=== PATIENT | male | born 1980 | race Caucasian/White ===

== ENCOUNTER 2018-11-11 13:05 | Emergency (ER) | payer MEDICAID ==
[2018-11-11] MEDS ORDERED: LORazepam 2 MG/ML SDV IVPUSH ONE (13:12)
[2018-11-11] MEDS ORDERED: Lactated Ringers 1,000 ML IV ONE (13:17)
--- NOTE | 2018-11-11 14:02 | EDM.PDOC ---
ED HPI GENERAL MEDICAL PROBLEM - General Chief Complaint: Head Injury Stated Complaint: SEIZURES Time Seen by Provider: 11/11/18 13:10 Source of Information: Reports: Patient, EMS History Limitations: Reports: Other (mental delays) - History of Present Illness INITIAL COMMENTS - FREE TEXT/NARRATIVE: Patient brought in via EMS from the [facility] after reports of several seizures which resulted in the patient falling and striking the back of his head. He did have some bleeding from the injury. 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 Seizures all 1 minute in length or shorter. He had 3 different episodes at [facility] and 1 episode in the ambulance. Total of 4 seizures in 1 hour. Denies headache, neck ache, chest pain, SOB, abdominal pain. He has no complaints when asked. Alert, breathing, and in no distress. Onset: Today, Sudden Duration: Intermittent Associated Symptoms: Reports: Seizure - Related Data Allergies Allergy/AdvReac Type Severity Reaction Status Date / Time minocycline Allergy Cannot Verified 11/18/15 13:43 Remember Home Meds: Home Meds Calcium Citrate 250 mg PO BID 11/18/15 [History] Cholecalciferol (Vitamin D3) [Vitamin D3] 2,000 unit PO DAILY 11/18/15 [History] Desonide 1 applic TOP BID PRN 11/18/15 [History] Diazepam [Valium Intensol 5 MG/ML] 20 mg BUCCAL ASDIRECTED PRN 11/18/15 [History ] Methsuximide [Celontin] 600 mg PO BID 11/18/15 [History] Multivitamin/Iron/Folic Acid [Sentry Tablet] 1 each PO DAILY 11/18/15 [History] lamoTRIgine [Lamotrigine] 300 mg PO TID 11/18/15 [History] levETIRAcetam [Levetiracetam] 1,000 mg PO DAILY 11/18/15 [History] levETIRAcetam [Levetiracetam] 2,000 mg PO BID 11/18/15 [History] Past Medical History Neurological History: Reports: Seizure Social & Family History - Family History Family Medical History: Noncontributory ED ROS GENERAL - Review of Systems Review Of Systems: See Below Constitutional: Reports: No Symptoms HEENT: Reports: No Symptoms Respiratory: Reports: No Symptoms Cardiovascular: Reports: No Symptoms Endocrine: Reports: No Symptoms GI/Abdominal: Reports: No Symptoms : Reports: No Symptoms Musculoskeletal: Reports: No Symptoms Skin: Reports: No Symptoms Neurological: Reports: No Symptoms Psychiatric: Reports: No Symptoms Hematologic/Lymphatic: Reports: No Symptoms Immunologic: Reports: No Symptoms ED EXAM, GI/ABD - Physical Exam Exam: See Below Exam Limited By: Other (mental delays) General Appearance: Alert, No Apparent Distress Eyes: Bilateral: Normal Appearance, EOMI Ears: Normal TMs Nose: Normal Inspection, Normal Mucosa, No Blood Throat/Mouth: Normal Inspection, Normal Lips, Normal Teeth, Normal Gums, Normal Oropharynx, Normal Voice, No Airway Compromise Head: Atraumatic, Normocephalic Neck: Normal Inspection, Supple, Non-Tender, Full Range of Motion Respiratory/Chest: No Respiratory Distress, Lungs Clear, Normal Breath Sounds, No Accessory Muscle Use, Chest Non-Tender Cardiovascular: Normal Peripheral Pulses, Regular Rate, Rhythm, No Edema, No Gallop, No JVD, No Murmur, No Rub GI/Abdominal Exam: Normal Bowel Sounds, Soft, Non-Tender, No Organomegaly, No Distention, No Abnormal Bruit, No Mass, Pelvis Stable Extremities: Normal Inspection, Normal Range of Motion, Non-Tender, Normal Capillary Refill, No Pedal Edema Neurological: Alert, Oriented, CN II-XII Intact, Normal Cognition, Normal Gait, Normal Reflexes, No Motor/Sensory Deficits Psychiatric: Normal Affect, Normal Mood Skin Exam: Warm, Dry, Normal Color, No Rash, Wound/Incision (posterior occiput abrasion, no lac.) Lymphatic: No Adenopathy Course - Orders/Labs/Meds Orders: Active Orders 24 hr Category Date Time Status Cervical Spine wo Cont [CT] Stat Exams 11/11/18 13:11 Ordered Head wo Cont [CT] Stat Exams 11/11/18 13:11 Ordered BASIC METABOLIC PANEL,BMP [CHEM] Stat Lab 11/11/18 13:11 Ordered MAGNESIUM [CHEM] Stat Lab 11/11/18 13:11 Ordered LORazepam [Ativan] Med 11/11/18 13:12 Once 0.5 mg IVPUSH STAT ONE Medication Orders Lorazepam (Ativan) 0.5 mg IVPUSH STAT ONE Stop: 11/11/18 13:13 Meds: Medications Generic Name Dose Route Start Last Admin Trade Name Freq PRN Reason Stop Dose Admin Lorazepam 0.5 mg 11/11/18 13:12 Ativan IVPUSH 11/11/18 13:13 STAT ONE - Radiology Interpretation Free Text/Narrative:: CT of head and neck negative for acute process. Head shows some abrasion/ hematoma. No intracranial bleeding. Departure - Departure Time of Disposition: 15:05 Disposition: Home, Self-Care 01 Condition: Fair Clinical Impression: Seizure - Discharge Information *PRESCRIPTION DRUG MONITORING PROGRAM REVIEWED*: Not Applicable *COPY OF PRESCRIPTION DRUG MONITORING REPORT IN PATIENT IAN: Not Applicable Instructions: Seizure, Adult, [id number] Forms: ED Department Discharge Additional Instructions: Plan 1. Stay well hydrated 2. Continue to take your seizure medications as prescribed 3. Follow up with your regular neurologist as needed for any medication changes 4. Please call if you have any further questions or concerns - Problem List & Annotations (1) Seizure SNOMED Code(s): 12778703 Code(s): R56.9 - UNSPECIFIED CONVULSIONS Status: Acute Priority: Medium Current Visit: Yes - Problem List Review Problem List Initiated/Reviewed/Updated: Yes - My Orders Last 24 Hours: My Active Orders 11/11/18 13:11 Cervical Spine wo Cont [CT] Stat Head wo Cont [CT] Stat BASIC METABOLIC PANEL,BMP [CHEM] Stat MAGNESIUM [CHEM] Stat 11/11/18 13:12 LORazepam [Ativan] 0.5 mg IVPUSH STAT ONE - Assessment/Plan Last 24 Hours: My Active Orders 11/11/18 13:11 Cervical Spine wo Cont [CT] Stat Head wo Cont [CT] Stat BASIC METABOLIC PANEL,BMP [CHEM] Stat MAGNESIUM [CHEM] Stat 11/11/18 13:12 LORazepam [Ativan] 0.5 mg IVPUSH STAT ONE Assessment:: seizures Plan: Plan 1. Stay well hydrated 2. Continue to take your seizure medications as prescribed 3. Follow up with your regular neurologist as needed for any medication changes 4. Please call if you have any further questions or concerns
[2018-11-11 14:08] LABS: ANION GAP 12.7 mmol/L (10-20); CHLORIDE,CL 104 mmol/L (98-107); SODIUM,NA 141 mmol/L (136-145)
--- NOTE | 2018-11-11 14:32 | CT ---
[id number] CT/CT Head WO IV EXAM: CT Head WO IV CLINICAL DATA: FALL, HEAD LACERATION. COMPARISON STUDY: None FINDINGS: Small scalp contusions along the cranial vertex extending over the left parietal-occipital region. No underlying calvarial fracture. No acute intracranial hemorrhage. No evidence of acute large vessel ischemia. No hydrocephalus. There is however evidence of cerebellar atrophy, specifically the vermis in relation to the cerebral hemispheres. Finding is nonspecific. IMPRESSION: Left parieto-occipital and cranial vertex scalp contusions without underlying fracture or acute intracranial hemorrhage. Other findings are described above. Delvis Sims MD 11/11/18 [id number] Thank you for allowing us to participate in the care of your patient.
--- NOTE | 2018-11-11 14:33 | CT ---
[id number] CT/CT Cervical Spine WO IV EXAM: CT Cervical Spine WO IV INDICATION: FALL,HEAD LACERATION. COMPARISON: None. DISCUSSION: No fracture or compression deformity. Vertebral bodies remain in normal alignment. Scattered changes of mild to moderate spondylosis throughout the cervical spine. No prevertebral soft tissue edema. Lung apices are clear. IMPRESSION: No acute findings in the cervical spine. Delvis Sims MD 11/11/18 0012 Thank you for allowing us to participate in the care of your patient.
[2018-11-11] MEDS ORDERED: diazePAM 5 MG/ML MDV IVPUSH ONE (14:39)
== END 2018-11-11 15:05 | disposition home or self-care (01) ==
LOC: VM.ED 13:05
DX: R56.9 Unspecified convulsions (principal); Z88.8 Allergy status to other drugs, medicaments and biological substances; Z79.899 Other long term (current) drug therapy
CPT/HCPCS: 36415; 70450; 72125; 80048; 83735; 96361; 96374; 99285; J2060; J7120

== ENCOUNTER 2018-11-11 16:01 | Emergency (ER) | payer MEDICAID ==
[2018-11-11] MEDS: Lidocaine 2% with EPINEPHrine 1:100,000 20 ML MDV INJECT ONE (16:29)
--- NOTE | 2018-11-11 16:55 | EDM.PDOC ---
ED HPI GENERAL MEDICAL PROBLEM - General Chief Complaint: Head Injury Stated Complaint: FELL Time Seen by Provider: 11/11/18 16:22 Source of Information: Reports: Patient, Family History Limitations: Reports: No Limitations - History of Present Illness INITIAL COMMENTS - FREE TEXT/NARRATIVE: Patient returns to the ER after discharge after seizing and falling at the [facility] and lacerating his head. No other complaints. Mother has brought him in for re evaluation. Onset: Today, Sudden Location: Reports: Head - Related Data Allergies Allergy/AdvReac Type Severity Reaction Status Date / Time minocycline Allergy Cannot Verified 11/18/15 13:43 Remember Home Meds: Home Meds Calcium Citrate 250 mg PO BID 11/18/15 [History] Cholecalciferol (Vitamin D3) [Vitamin D3] 2,000 unit PO DAILY 11/18/15 [History] Desonide 1 applic TOP BID PRN 11/18/15 [History] Diazepam [Valium Intensol 5 MG/ML] 20 mg BUCCAL ASDIRECTED PRN 11/18/15 [History ] Methsuximide [Celontin] 600 mg PO BID 11/18/15 [History] Multivitamin/Iron/Folic Acid [Sentry Tablet] 1 each PO DAILY 11/18/15 [History] lamoTRIgine [Lamotrigine] 300 mg PO TID 11/18/15 [History] levETIRAcetam [Levetiracetam] 1,000 mg PO DAILY 11/18/15 [History] levETIRAcetam [Levetiracetam] 2,000 mg PO BID 11/18/15 [History] Past Medical History Neurological History: Reports: Seizure Social & Family History - Family History Family Medical History: Noncontributory ED ROS GENERAL - Review of Systems Review Of Systems: See Below Constitutional: Reports: No Symptoms HEENT: Reports: No Symptoms Respiratory: Reports: No Symptoms Cardiovascular: Reports: No Symptoms Endocrine: Reports: No Symptoms GI/Abdominal: Reports: No Symptoms : Reports: No Symptoms Musculoskeletal: Reports: No Symptoms Skin: Reports: Wound Neurological: Reports: No Symptoms Psychiatric: Reports: No Symptoms Hematologic/Lymphatic: Reports: No Symptoms Immunologic: Reports: No Symptoms ED EXAM, HEAD INJURY - Physical Exam Exam: See Below Exam Limited By: No Limitations General Appearance: Alert, WD/WN, No Apparent Distress Head: Normocephalic, Scalp Lacerations Eyes: Bilateral Eye: EOMI, Normal Inspection Neck: Non-Tender, Full Range of Motion, Normal Alignment, Normal Inspection 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 As Tested, No Motor/Sensory Deficits, Alert, Normal Mood/Affect, Oriented x 3 Skin: Other (wound to posterior head/occiput) ED LACERATION/WOUND & ELENA PROC - Laceration/Wound Repair Right Posterior Head Lac/wound length in cm: 3.5 Appearance: Stellate Anesthetic Type: Local Local Anesthesia - Lidocaine (Xylocaine): 2% with EPI Skin Prep: Chlorhexidine (Hibiciens) Exploration/Debridement/Repair: Wound Explored, In a Bloodless Field, Explored to Base, No Foreign Material Found, Multiple Flaps Aligned Closed with: Basilia # of Sutures: 8 Sterile Dressing Applied: Nurse Tetanus Status Addressed: No Complications: No Course - Orders/Labs/Meds Meds: Medications Discontinued Medications Generic Name Dose Route Start Last Admin Trade Name Freq PRN Reason Stop Dose Admin Lidocaine/Epinephrine 20 ml 11/11/18 16:23 11/11/18 16:29 Xylocaine 2% With Epinephrine 1:100,000 INJECT 11/11/18 16:24 20 ml ONETIME ONE Administration - Re-Assessments/Exams Free Text/Narrative Re-Assessment/Exam: 11/11/18 17:17 Mother given signs to look for if a needed repeat CT is warranted. CT of head and neck just performed at his first visit here. Will return to ED if any concerns of changing neuro status. Departure - Departure Time of Disposition: 16:55 Disposition: Home, Self-Care 01 Condition: Fair Clinical Impression: Laceration of head - Discharge Information *PRESCRIPTION DRUG MONITORING PROGRAM REVIEWED*: Not Applicable *COPY OF PRESCRIPTION DRUG MONITORING REPORT IN PATIENT IAN: Not Applicable Instructions: Stitches, Basilia, or Adhesive Wound Closure, [id number], Wound Infection, [id number] Forms: ED Department Discharge Additional Instructions: Plan 1. Follow up for staple removal in 10-14 days 2. Watch for signs of infection in the wound which can include fever, chills, red, swollen, and hot to the touch 3. No submerging in water until fully healed 4. May shower and wash with soap and water 5. May rinse out remaining blood from hair but try to avoid cleaning the wound site more as this will encourage bleeding 6. Please call if you have any additional questions or concerns - Problem List & Annotations (1) Laceration of head SNOMED Code(s): 908559957 Code(s): S01.91XA - LACERATION W/O FOREIGN BODY OF UNSP PART OF HEAD, INIT Status: Acute Priority: Medium Current Visit: Yes Qualifiers: Encounter type: initial encounter Location of open wound of head: other part of head Foreign body presence: without foreign body Qualified Code(s): S01.81XA - Laceration without foreign body of other part of head, initial encounter - Problem List Review Problem List Initiated/Reviewed/Updated: Yes - Assessment/Plan Assessment:: laceration right occiput Plan: Plan 1. Follow up for staple removal in 10-14 days 2. Watch for signs of infection in the wound which can include fever, chills, red, swollen, and hot to the touch 3. No submerging in water until fully healed 4. May shower and wash with soap and water 5. May rinse out remaining blood from hair but try to avoid cleaning the wound site more as this will encourage bleeding 6. Please call if you have any additional questions or concerns
== END 2018-11-11 17:01 | disposition home or self-care (01) ==
LOC: VM.ED 16:01
DX: S01.01XA Laceration without foreign body of scalp, initial encounter (principal); Z88.1 Allergy status to other antibiotic agents; Z79.899 Other long term (current) drug therapy; W18.39XA Other fall on same level, initial encounter
CPT/HCPCS: 12002; 12032; 99283-25

== ENCOUNTER 2019-11-20 19:26 | Emergency (ER) | payer MEDICAID ==
--- NOTE | 2019-11-20 20:01 | EDM.PDOC ---
ED HPI GENERAL MEDICAL PROBLEM - General Stated Complaint: SEIZURE Time Seen by Provider: 11/20/19 19:26 Source of Information: Reports: Patient, Family, [facility] Records - History of Present Illness INITIAL COMMENTS - FREE TEXT/NARRATIVE: Patient [facility] in [place] following a seizure and a fall. This patient is very well known to have multiple seizures a week. He has been taking his medication as prescribed. Today he was outside when he suddenly had a seizure while he was standing and he fell face forward and landed on concrete. He was on responsive for approximately 1 minute but he did have a seizure prior to his fall. His neurological status is back to baseline according to the caregiver that is here with him. He does have some scrapes on his knees as well as an abrasion to his face. The patient denies any head neck or back pain. He does complain of some pain to the abrasions on his face as well as his knees. - Related Data Allergies Allergy/AdvReac Type Severity Reaction Status Date / Time minocycline Allergy Cannot Verified 11/11/18 21:06 Remember Home Meds: Home Meds Calcium Citrate 250 mg PO BID 11/18/15 [History] Cholecalciferol (Vitamin D3) [Vitamin D3] 2,000 unit PO DAILY 11/18/15 [History] Desonide 1 applic TOP BID PRN 11/18/15 [History] Diazepam [Valium Intensol 5 MG/ML] 20 mg BUCCAL ASDIRECTED PRN 11/18/15 [History ] Methsuximide [Celontin] 600 mg PO BID 11/18/15 [History] Multivitamin/Iron/Folic Acid [Sentry Tablet] 1 each PO DAILY 11/18/15 [History] lamoTRIgine [Lamotrigine] 300 mg PO TID 11/18/15 [History] levETIRAcetam [Levetiracetam] 1,000 mg PO DAILY 11/18/15 [History] levETIRAcetam [Levetiracetam] 2,000 mg PO BID 11/18/15 [History] Past Medical History Neurological History: Reports: Seizure Social & Family History - Family History Family Medical History: Noncontributory ED ROS GENERAL - Review of Systems Review Of Systems: Comprehensive ROS is negative, except as noted in HPI. - Physical Exam Exam: See Below Exam Limited By: Other (Cognitive impairment) General Appearance: Alert, WD/WN, No Apparent Distress Eye Exam: Bilateral Eye: EOMI, Normal Inspection, PERRL Ears: Normal External Exam. No: Normal Canal (Bilateral canals are occluded with cerumen) Nose: Normal Inspection, Normal Mucosa Throat/Mouth: Normal Inspection, Normal Lips Head Exam: Normocephalic, Facial Abrasions (There is an abrasion on the right lateral eyebrow that extends down to his middle cheek. This is superficial and does not need repair.), Facial Ecchymosis (There is some ecchymosis to the upper and lower right eyelid as well as the right zygomatic arch.). No: Scalp Lacerations, Scalp Swelling, Scalp Abrasions, Scalp Ecchymosis, Scalp Hematoma, Scalp Tenderness, Facial Lacerations, Sinus Tenderness Neck: Normal Inspection, Supple. No: Tender Lateral, Tender Midline Respiratory/Chest: No Respiratory Distress, Lungs Clear, Normal Breath Sounds, No Accessory Muscle Use, Chest Non-Tender Cardiovascular: Normal Peripheral Pulses, Regular Rate, Rhythm GI/Abdominal: Normal Bowel Sounds, Soft, Non-Tender (Male) Exam: Deferred Rectal (Males) Exam: Deferred Neuro Exam (Abbreviated): Alert, Oriented, CN II-XII Intact, Normal Cognition, Normal Reflexes, No Motor/Sensory Deficits, Other (Neurological status is at baseline according to the caregivers that are here with him.) Back Exam: Normal Inspection, Full Range of Motion. No: Muscle Spasm, Paraspinal Tenderness, Vertebral Tenderness Extremities: Normal Range of Motion, No Pedal Edema, Normal Capillary Refill. No: Normal Inspection (The patient has some superficial abrasions on bilateral patella. He is able to flex and extend his knee. There is no crepitus. There is no overt bony deformity. He has a negative Lockman and anterior drawer sign. Negative varus and valgus stress. No bruising swelling ecchymosis or other signs of trauma to the knee. His pelvis is stable.) Psychiatric: Flat Affect Skin Exam: Warm, Dry, Intact, Normal Color, No Rash Course - Orders/Labs/Meds Orders: Active Orders 24 hr Category Date Time Status Head wo Cont [CT] Stat Exams 11/20/19 19:31 Taken Maxillofacial w/o CM [Max Facial Sinus wo Cont] [CT] Exams 11/20/19 19:31 Taken Stat BASIC METABOLIC PANEL,BMP [CHEM] Stat Lab 11/20/19 19:30 Ordered CBC WITH AUTO DIFF [HEME] Stat Lab 11/20/19 19:30 Ordered LEVETIRACETAM, S [REF] Stat Lab 11/20/19 19:31 Ordered - Radiology Interpretation Free Text/Narrative:: CT the head per radiology shows no significant abnormalities. CT maxillofacial without contrast shows right periorbital soft tissue swelling without acute bony abnormality. Otherwise unremarkable. - Re-Assessments/Exams Free Text/Narrative Re-Assessment/Exam: 11/20/19 20:13 We did check his Keppra level. Cleaning up the abrasions on his face and the dried blood we did identify that he had multiple superficial lacerations on the right upper eyelid. There is approximately 4 superficial lacerations that are well approximated on the right upper eyelid. They are not entirely through the eyelid themselves. It was cleansed with chlorhexidine. After it was allowed to dry. Dermabond was used for these 4 lacerations for repair. The longest was approximately 1.5 cm the other ones were half centimeter half centimeter and three quarters of a centimeter. These all were well approximated in repaired well with Dermabond. 11/20/19 20:29 discharge home with symptomatic management. Caregiver was comfortable with this plan and his questions answered. Departure - Departure Time of Disposition: 20:30 Disposition: DC/Tfer to [facility] Clinical Impression: Seizure, Abrasions of multiple sites, Laceration of eyelid without involvement of lid margin - Discharge Information Instructions: Epilepsy, [id number] Additional Instructions: Continue medications as previous. Wash abrasions twice daily with soap and water. Bacitracin and bandage until healed. except for the area where the dermabond was applied. Do not pull at the Dermabond. Allow to fall off. Do not get the area wet with the dermabond. Return to the ED if new or worsening symptoms. Follow up with PCP if any concerns. Sepsis Event Note - Focused Exam Date Exam was Performed: 11/20/19 Time Exam was Performed: 20:13 - My Orders Last 24 Hours: My Active Orders 11/20/19 19:30 BASIC METABOLIC PANEL,BMP [CHEM] Stat CBC WITH AUTO DIFF [HEME] Stat 11/20/19 19:31 Head wo Cont [CT] Stat Maxillofacial w/o CM [Max Facial Sinus wo Cont] [CT] Stat LEVETIRACETAM, S [REF] Stat - Assessment/Plan Last 24 Hours: My Active Orders 11/20/19 19:30 BASIC METABOLIC PANEL,BMP [CHEM] Stat CBC WITH AUTO DIFF [HEME] Stat 11/20/19 19:31 Head wo Cont [CT] Stat Maxillofacial w/o CM [Max Facial Sinus wo Cont] [CT] Stat LEVETIRACETAM, S [REF] Stat Assessment:: Breakthrough recurrent seizures. Multiple sites of abrasion to the face and bilateral knees. Multiple small laceration to the right upper eye lid repaired with dermabond.
[2019-11-20 20:47] LABS: CHLORIDE,CL 108 mmol/L (98-107); SODIUM,NA 145 mmol/L (136-145)
[2019-11-20 20:48] LABS: ANION GAP 15.1 mmol/L (10-20)
--- NOTE | 2019-11-21 08:01 | CT ---
[id number] CT/CT Head WO IV EXAM: NONCONTRAST HEAD CT INDICATION: Fall with seizure and head trauma. Loss of consciousness for one-2 minutes. COMPARISON: November 11, 2018. DISCUSSION: Mild to moderate cerebellar atrophy. The stafford and white matter are normal in attenuation. No mass effect or midline shift. No acute hemorrhage or extra-axial fluid collection. No acute territorial infarct is identified. The facial bones will be further detailed on a dedicated facial bone study. IMPRESSION: 1. No acute intracranial findings. Lars Galarza MD 11/21/19 0800 Thank you for allowing us to participate in the care of your patient.
--- NOTE | 2019-11-21 08:06 | CT ---
[id number] CT/CT Facial Bones WO IV EXAM: FACIAL BONE CT WITHOUT CONTRAST INDICATION: Seizure and facial pain after hitting head on concrete. COMPARISON: Head CT same date. DISCUSSION: Preseptal right periorbital soft tissue swelling. No acute facial bone fracture is identified. The paranasal sinuses are normally aerated. There is mild convex left curvature of the nasal septum. Periapical lucency involving the lateral right maxillary incisor could represent dental abscess. IMPRESSION: 1. Right facial soft tissue swelling. No acute fractures identified. Lars Galarza MD 11/21/19 0805 Thank you for allowing us to participate in the care of your patient.
== END 2019-11-20 20:59 ==
LOC: VM.ED 19:26
DX: R56.9 Unspecified convulsions (principal); S01.111A Laceration without foreign body of right eyelid and periocular area, initial encounter; S00.81XA Abrasion of other part of head, initial encounter; H61.23 Impacted cerumen, bilateral; Z88.8 Allergy status to other drugs, medicaments and biological substances; Z79.899 Other long term (current) drug therapy; W18.30XA Fall on same level, unspecified, initial encounter
CPT/HCPCS: 12013; 36415; 70450; 70486; 80048; 80177; 85025; 99285-25

== ENCOUNTER 2020-01-03 19:37 | Emergency (ER) | payer MEDICAID ==
[2020-01-03 20:26] LABS: ANION GAP 12.6 mmol/L (10-20); CHLORIDE,CL 105 mmol/L (98-107); SODIUM,NA 142 mmol/L (136-145)
--- NOTE | 2020-01-03 20:29 | EDM.PDOC ---
ED HPI GENERAL MEDICAL PROBLEM - General Chief Complaint: General Stated Complaint: Seizure/Fall Time Seen by Provider: 01/03/20 19:37 Source of Information: Reports: Patient History Limitations: Reports: No Limitations - History of Present Illness INITIAL COMMENTS - FREE TEXT/NARRATIVE: Pt. had a witnessed seizure at his long term. Pt. was walking at the onset of the seizure and fell forward, striking his head/face. Caregiver estimates the seizure lasted 15-20 min. of what sounds like partial complex seizure activity. Mom states that the patient does not have significant tonic/clonic movement of the extremities. He was postictal and mildly combative afterward. he was given a dose of oral valium 20mg PO. Pt. sustained lacerations to his face. Denies any neck pain. EMS was summoned and transported the patient to ER. Pt. last seizure was about 11/20/2019. He was brought to ER at that time and required sutures. CT brain and facial bones at that time were negative, and labs were all within normal limits. Pt. denies any chest pain, shortness of breath, headache, numbness/tingling etc. Staff states that he is normally quite quiet after seizures(especially after getting valium) and he feels that this is normal for the patient. 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 - Related Data Allergies Allergy/AdvReac Type Severity Reaction Status Date / Time minocycline Allergy Seizure Verified 01/03/20 19:52 Home Meds: Home Meds Calcium Citrate 250 mg PO BID 11/18/15 [History] Cholecalciferol (Vitamin D3) [Vitamin D3] 4,000 unit PO DAILY 11/18/15 [History] lamoTRIgine [Lamotrigine] 350 mg PO BID 11/18/15 [History] levETIRAcetam [Levetiracetam] 2,000 mg PO BID 11/18/15 [History] Multivitamins [Tab-A-Mary Ann] 1 tab PO DAILY 11/21/19 [History] Sennosides/Docusate Sodium [Senna-S] 2 tab PO BID 11/21/19 [History] Zonisamide 300 mg pe PO BEDTIME 11/21/19 [History] cloBAZam [Clobazam] 10 mg PO BID 11/21/19 [History] polyethylene glycoL 3350 [MiraLAX] 17 gm PO BEDTIME 11/21/19 [History] Lacosamide [Vimpat] 200 mg PO BID 01/03/20 [History] diazePAM [Diazepam] 20 mg PO ASDIRECTED PRN MDD 01/03/20 [History] Past Medical History Gastrointestinal History: Reports: Chronic Constipation Neurological History: Reports: Seizure Other Neuro History: nursing home patient, mentally disabled/handicaped Social & Family History - Family History Family Medical History: Noncontributory - Tobacco Use Smoking Status *Q: Never Smoker - Recreational Drug Use Recreational Drug Use: No ED ROS GENERAL - Review of Systems Review Of Systems: See Below Constitutional: Reports: No Symptoms HEENT: Reports: No Symptoms Respiratory: Reports: No Symptoms Cardiovascular: Reports: No Symptoms Endocrine: Reports: No Symptoms GI/Abdominal: Reports: No Symptoms : Reports: No Symptoms Musculoskeletal: Reports: No Symptoms Skin: Reports: No Symptoms Neurological: Reports: Seizure Psychiatric: Reports: No Symptoms Hematologic/Lymphatic: Reports: No Symptoms Immunologic: Reports: No Symptoms ED EXAM, GENERAL - Physical Exam Exam: See Below Exam Limited By: Altered Mental Status General Appearance: Alert, WD/WN, No Apparent Distress Eye Exam: Bilateral Eye: EOMI, Normal Fundi, Normal Inspection, PERRL Nose: Normal Inspection, Normal Mucosa, No Blood Throat/Mouth: Normal Inspection, Normal Lips, Normal Teeth, Normal Gums, Normal Oropharynx, Normal Voice, No Airway Compromise Head: Atraumatic, Normocephalic Neck: Normal Inspection, Supple, Non-Tender, Full Range of Motion Respiratory/Chest: No Respiratory Distress, Lungs Clear, Normal Breath Sounds, No Accessory Muscle Use, Chest Non-Tender Cardiovascular: Normal Peripheral Pulses, Regular Rate, Rhythm, No Edema, No JVD Peripheral Pulses: 4+: Radial (R) GI/Abdominal: Soft, Non-Tender, No Distention, No Mass (Male) Exam: Deferred Rectal (Males) Exam: Deferred Back Exam: Normal Inspection, Full Range of Motion Extremities: Normal Inspection, Normal Range of Motion, No Pedal Edema, Normal Capillary Refill Neurological: CN II-XII Intact, Normal Cognition, No Motor/Sensory Deficits, Slow to Respond Skin Exam: Warm, Dry, No Rash, Pallor Lymphatic: No Adenopathy ED GENERAL MEDICAL PROCEDURES - Laceration/Wound Repair Left Lateral Forehead Lac/wound length in cm: 7 Appearance: Subcutaneous Distal NVT: Neuro & Vascular Intact Skin Prep: Chlorhexidine (Hibiciens), Saline Saline irrigation (cc's): 500 Closed with: Dermabond Course - Vital Signs Last Recorded V/S: Last Vital Signs Temp 36.7 C 01/03/20 19:45 Pulse 103 H 01/03/20 19:45 Resp 16 01/03/20 19:45 BP 122/80 01/03/20 19:45 Pulse Ox 97 01/03/20 19:45 - Orders/Labs/Meds Orders: Active Orders 24 hr Category Date Time Status Head wo Cont [CT] Stat Exams 01/03/20 19:38 Taken LEVETIRACETAM, S [REF] Stat Lab 01/03/20 20:03 Received Labs: Laboratory Tests 01/03/20 01/03/20 Range/Units 20:03 20:03 WBC 5.4 (4.0-10.0) x10^3/uL RBC 4.16 L (4.5-6.0) x10^6/uL Hgb 12.2 L (14.0-18.0) g/dL Hct 36.1 L (40.0-52.0) % MCV 86.8 (78.0-93.0) fL MCH 29.3 (26.0-32.0) pg MCHC 33.8 (32.0-36.0) g/dL RDW Coeff of Danyelle 11.9 (10.0-15.0) % Plt Count 233 (130-400) x10^3/uL Neut % (Auto) 60.4 (50.0-80.0) % Lymph % (Auto) 23.3 L (25.0-50.0) % Emanuel % (Auto) 12.7 H (2.0-11.0) % Eos % (Auto) 3.2 (0.0-4.0) % Baso % (Auto) 0.4 (0.2-1.2) % Sodium 142 (136-145) mmol/L Potassium 3.6 (3.5-5.1) mmol/L Chloride 105 (98-107) mmol/L Carbon Dioxide 28 (21-32) mmol/L Anion Gap 12.6 (10-20) mmol/L BUN 22 H (7-18) mg/dL Creatinine 2.0 H (0.70-1.30) mg/dL Est Cr Clr Drug Dosing TNP Estimated GFR (MDRD) 37 Glucose 101 (74-106) mg/dL Calcium 10.5 H (8.5-10.1) mg/dL Corrected Calcium 10.66 H D (8.5-10.1) mg/dL Total Bilirubin 0.2 (0.2-1.0) mg/dL AST 12 L (15-37) U/L ALT 24 (16-63) U/L Alkaline Phosphatase 103 (46-116) U/L Total Protein 7.1 (6.4-8.2) g/dL Albumin 3.8 (3.4-5.0) g/dL Globulin 3.3 Albumin/Globulin Ratio 1.15 - Radiology Interpretation Free Text/Narrative:: CT brain and facial bones obtained, negative for acute pathology Departure - Departure Time of Disposition: 20:48 Disposition: Home, Self-Care 01 Clinical Impression: Laceration, Seizure - Discharge Information Instructions: Epilepsy, [id number], Laceration Care, Adult Referrals: Kristie Mcdermott, [Primary Care Provider] - Forms: ED Department Discharge Additional Instructions: Continue with current medications. We will let you know if his medications need to be adjusted. Follow-up in clinic later this week. Return to ER if recurrent seizure activity that lasts longer than your protocol. Sepsis Event Note (ED) - Evaluation Sepsis Screening Result: No Definite Risk - Focused Exam Vital Signs: Vital Signs Temp Pulse Resp BP Pulse Ox 01/03/20 19:45 36.7 C 103 H 16 122/80 97 - Problem List Review Problem List Initiated/Reviewed/Updated: Yes - My Orders Last 24 Hours: My Active Orders 01/03/20 19:38 Head wo Cont [CT] Stat 01/03/20 20:03 LEVETIRACETAM, S [REF] Stat - Assessment/Plan Last 24 Hours: My Active Orders 01/03/20 19:38 Head wo Cont [CT] Stat 01/03/20 20:03 LEVETIRACETAM, S [REF] Stat Plan: Continue with current medications. We will let you know if his medications need to be adjusted. Follow-up in clinic later this week. Return to ER if recurrent seizure activity that lasts longer than your protocol.
--- NOTE | 2020-01-03 20:42 | CT ---
[id number] CT/CT Head WO IV; CT/CT Facial Bones WO IV Exam: CT Head WO IV, CT Facial Bones WO IV Indication:FALL/SEIZURE Comparison: November 20, 2019. Discussion: No acute intracranial hemorrhage or extra-axial fluid collection. No hydrocephalus. Again seen is cerebellar atrophy in relation to the cerebrum. Finding is nonspecific and unchanged from the prior examination. Small right frontal scalp contusion. No underlying calvarial fracture. CT FACIAL BONES: No acute facial bone fracture. Impression: Small right frontal scalp contusion. No underlying calvarial fracture, acute intracranial hemorrhage, or acute facial bone fracture. Delvis Sims MD 01/03/202039 Thank you for allowing us to participate in the care of your patient.
== END 2020-01-03 20:50 | disposition home or self-care (01) ==
LOC: VM.ED 19:37 → SUPCPDRO 19:37 → VM.ED 20:50
DX: S01.81XA Laceration without foreign body of other part of head, initial encounter (principal); R56.9 Unspecified convulsions; Z88.1 Allergy status to other antibiotic agents; Z79.899 Other long term (current) drug therapy; W19.XXXA Unspecified fall, initial encounter
CPT/HCPCS: 12014; 70450; 70486; 80053; 80177; 85025; 99285-25

== ENCOUNTER 2023-01-19 12:12 | Inpatient (IN) | payer MEDICAID ==
[2023-01-19] MEDS ORDERED: Sodium Chloride 0.9% 10 ML Syringe FLUSH PRN (13:04)
[2023-01-19] MEDS ORDERED: Sodium Chloride 0.9% 500 ML IV ONE (13:30)
[2023-01-19] MEDS ORDERED: Diazepam 5 MG/ML ML Oral Soln 30 ML Bottle PO PRN (15:43)
[2023-01-19] MEDS ORDERED: Flumazenil 0.1 MG/ML 5 ML MDV IVPUSH PRN (15:47)
[2023-01-19] MEDS ORDERED: LORazepam 2 MG/ML SDV IVPUSH PRN (15:47)
[2023-01-19] MEDS: Sodium Chloride 0.9% 1,000 ML IV SCH ×2 (16:02→21:14)
[2023-01-19 20:38] LABS: ALBUMIN 3.4 g/dL (3.4-5.0); CREATININE 2.5 mg/dL (0.70-1.30); EST CRCL DRUG DOSING (CG) 38.1 mL/min; MAGNESIUM 1.5 mg/dL (1.8-2.4); PHOSPHORUS 3.6 mg/dL (2.6-4.7); POTASSIUM,K 3.1 mmol/L (3.5-5.1)
[2023-01-19 20:48] LABS: CALCIUM 12.6 mg/dL (8.5-10.1)
[2023-01-19] MEDS: Polyethylene Glycol 3350 Powder 17 GM Packet PO SCH (21:11)
[2023-01-19] MEDS: CLOBAZAM 20 MG PO SCH (21:16)
[2023-01-19] MEDS: levETIRAcetam 500 MG Tab PO SCH (21:18)
[2023-01-19] MEDS: Lacosamide 50 MG Tab PO SCH (21:19)
[2023-01-19] MEDS: lamoTRIgine 100 MG Tab PO SCH (21:20)
[2023-01-19] MEDS: Sennosides/Docusate Sodium 50-8.6 MG Tab PO SCH (21:22)
[2023-01-19] MEDS: Zonisamide 100 MG Cap PO SCH (21:22)
[2023-01-19 21:38] LABS: APPEARANCE,URINE CLEAR (CLEAR); BILIRUBIN,URINE NEGATIVE (NEGATIVE); COLOR,URINE YELLOW (YELLOW); GLUCOSE,URINE NEGATIVE (NEGATIVE); KETONES,URINE NEGATIVE (NEGATIVE); LEUKOCYTE ESTERASE,URINE TRACE (NEGATIVE); NITRITE,URINE NEGATIVE (NEGATIVE); OCCULT BLOOD,URINE NEGATIVE (NEGATIVE); PROTEIN,URINE NEGATIVE (NEGATIVE); UROBILINOGEN,URINE 0.2 EU/dL (0.2)
[2023-01-19 21:46] LABS: BACTERIA,URINE NOT SEEN /HPF (NOT SEEN); MUCUS,URINE NOT SEEN /LPF (NOT SEEN); RBC,URINE 0-5 /HPF (NOT SEEN); SQUAMOUS EPITHELIAL CELLS,UR RARE /HPF (NOT SEEN)
[2023-01-19] MEDS ORDERED: Potassium Chloride 20 MEQ Tab.ER PO ONE (22:18)
[2023-01-20] MEDS: Sodium Chloride 0.9% 1,000 ML IV SCH (03:35)
[2023-01-20 06:53] LABS: CREATININE 2.2 mg/dL (0.70-1.30); EST CRCL DRUG DOSING (CG) 43.29 mL/min; POTASSIUM,K 3.3 mmol/L (3.5-5.1)
[2023-01-20 06:55] LABS: ANION GAP 10.3 mmol/L (5-15)
[2023-01-20 07:00] LABS: CALCIUM 12.3 mg/dL (8.5-10.1)
[2023-01-20 07:02] LABS: BASOPHILS PERCENT AUTO 0.3 % (0.2-1.2); EOSINOPHILS ABSOLUTE AUTO 0.2 x10^3/uL (0.0-0.5); EOSINOPHILS PERCENT AUTO 3.5 % (0.0-4.0); HEMATOCRIT 32.1 % (40.0-52.0); HEMOGLOBIN 10.9 g/dL (14.0-18.0); IMMATURE GRAN ABSOLUTE AUTO 0.01 x10^3/uL (0.00-0.07); LYMPHOCYTES ABSOLUTE AUTO 1.1 x10^3/uL (1.0-4.8); LYMPHOCYTES PERCENT AUTO 18.9 % (25.0-50.0); MEAN CORPUSCULAR HEMOGLOBIN 28.9 pg (26.0-32.0); MEAN CORPUSCULAR VOLUME 85.1 fL (78.0-93.0); MONOCYTES ABSOLUTE AUTO 0.5 x10^3/uL (0.0-0.8); MONOCYTES PERCENT AUTO 8.5 % (2.0-11.0); NEUTROPHILS ABSOLUTE AUTO 4.1 x10^3/uL (1.8-7.7); NEUTROPHILS PERCENT AUTO 68.6 % (50.0-80.0); PLATELET COUNT,PLT 215 x10^3/uL (130-400); RED BLOOD CELL COUNT 3.77 x10^6/uL (4.5-6.0)
[2023-01-20] MEDS: Magnesium Oxide 400 MG Tab PO SCH ×2 (07:32→20:01)
[2023-01-20] MEDS: Lacosamide 50 MG Tab PO SCH ×2 (08:24→20:00)
[2023-01-20] MEDS: Sennosides/Docusate Sodium 50-8.6 MG Tab PO SCH ×2 (08:24→20:01)
[2023-01-20] MEDS: levETIRAcetam 500 MG Tab PO SCH ×2 (08:24→20:00)
[2023-01-20] MEDS: lamoTRIgine 100 MG Tab PO SCH ×2 (08:25→20:02)
[2023-01-20] MEDS: CLOBAZAM 20 MG PO SCH ×2 (08:25→20:03)
[2023-01-20] MEDS ORDERED: Sodium Chloride 0.45% 1,000 ML IV SCH (09:45)
[2023-01-20] MEDS: Potassium Chloride 20 MEQ Tab.ER PO SCH (09:50)
[2023-01-20] MEDS: Sodium Chloride 0.45% with KCl 1,000 ML IV SCH (19:28)
[2023-01-20] MEDS: Zonisamide 100 MG Cap PO SCH (20:01)
[2023-01-20] MEDS: Polyethylene Glycol 3350 Powder 17 GM Packet PO SCH (20:03)
[2023-01-21] MEDS: Sodium Chloride 0.45% with KCl 1,000 ML IV SCH ×3 (03:01→19:10)
[2023-01-21 06:48] LABS: BASOPHILS PERCENT AUTO 0.4 % (0.2-1.2); EOSINOPHILS ABSOLUTE AUTO 0.2 x10^3/uL (0.0-0.5); EOSINOPHILS PERCENT AUTO 4.1 % (0.0-4.0); HEMATOCRIT 31.9 % (40.0-52.0); HEMOGLOBIN 11.1 g/dL (14.0-18.0); IMMATURE GRAN ABSOLUTE AUTO 0.01 x10^3/uL (0.00-0.07); LYMPHOCYTES ABSOLUTE AUTO 0.7 x10^3/uL (1.0-4.8); MEAN CORPUSCULAR HEMOGLOBIN 29.1 pg (26.0-32.0); MEAN CORPUSCULAR HGB CONC 34.8 g/dL (32.0-36.0); MEAN CORPUSCULAR VOLUME 83.7 fL (78.0-93.0); MONOCYTES ABSOLUTE AUTO 0.5 x10^3/uL (0.0-0.8); MONOCYTES PERCENT AUTO 9.9 % (2.0-11.0); NEUTROPHILS ABSOLUTE AUTO 3.7 x10^3/uL (1.8-7.7); NEUTROPHILS PERCENT AUTO 71.4 % (50.0-80.0); PLATELET COUNT,PLT 204 x10^3/uL (130-400); RED BLOOD CELL COUNT 3.81 x10^6/uL (4.5-6.0); WHITE BLOOD CELL COUNT,WBC 5.1 x10^3/uL (4.0-10.0)
[2023-01-21 07:06] LABS: A/G RATIO 1.1; ALBUMIN 3.3 g/dL (3.4-5.0); BILIRUBIN TOTAL 0.3 mg/dL (0.2-1.0); CALCIUM 11.1 mg/dL (8.5-10.1); CREATININE 2.1 mg/dL (0.70-1.30); EST CRCL DRUG DOSING (CG) 45.36 mL/min; POTASSIUM,K 3.3 mmol/L (3.5-5.1); PROTEIN TOTAL,TP 6.3 g/dL (6.4-8.2)
[2023-01-21 07:07] LABS: ANION GAP 11.3 mmol/L (5-15)
[2023-01-21] MEDS: Magnesium Oxide 400 MG Tab PO SCH ×2 (08:21→20:40)
[2023-01-21] MEDS: Potassium Chloride 20 MEQ Tab.ER PO SCH (08:22)
[2023-01-21] MEDS: Lacosamide 50 MG Tab PO SCH ×2 (08:22→20:40)
[2023-01-21] MEDS: Sennosides/Docusate Sodium 50-8.6 MG Tab PO SCH ×2 (08:22→20:41)
[2023-01-21] MEDS: lamoTRIgine 100 MG Tab PO SCH ×2 (08:22→20:40)
[2023-01-21] MEDS: levETIRAcetam 500 MG Tab PO SCH ×2 (08:23→20:41)
[2023-01-21] MEDS: CLOBAZAM 20 MG PO SCH ×2 (08:23→20:41)
[2023-01-21] MEDS ORDERED: Acetaminophen 325 MG Tab PO PRN (08:40)
[2023-01-21] MEDS ORDERED: Magnesium Sulfate/Water 4 GM in Premix Bag 1 BAG IV ONE (08:45)
[2023-01-21] MEDS: Enoxaparin 40 MG/0.4 ML Syringe SUBCUT SCH (09:25)
[2023-01-21 16:34] LABS: A/G RATIO 1.06; ALBUMIN 3.4 g/dL (3.4-5.0); BILIRUBIN TOTAL 0.2 mg/dL (0.2-1.0); CALCIUM 10.4 mg/dL (8.5-10.1); CREATININE 2.1 mg/dL (0.70-1.30); EST CRCL DRUG DOSING (CG) 45.36 mL/min; POTASSIUM,K 3.6 mmol/L (3.5-5.1); PROTEIN TOTAL,TP 6.6 g/dL (6.4-8.2)
[2023-01-21 16:46] LABS: ANION GAP 13.6 mmol/L (5-15)
[2023-01-21] MEDS: Zonisamide 100 MG Cap PO SCH (20:41)
[2023-01-21] MEDS: Polyethylene Glycol 3350 Powder 17 GM Packet PO SCH (20:41)
[2023-01-22] MEDS: Sodium Chloride 0.45% with KCl 1,000 ML IV SCH (02:35)
[2023-01-22 06:41] LABS: BASOPHILS PERCENT AUTO 0.4 % (0.2-1.2); EOSINOPHILS ABSOLUTE AUTO 0.2 x10^3/uL (0.0-0.5); EOSINOPHILS PERCENT AUTO 4.1 % (0.0-4.0); HEMATOCRIT 32.9 % (40.0-52.0); HEMOGLOBIN 11.4 g/dL (14.0-18.0); IMMATURE GRAN ABSOLUTE AUTO 0.01 x10^3/uL (0.00-0.07); LYMPHOCYTES PERCENT AUTO 18.1 % (25.0-50.0); MEAN CORPUSCULAR HEMOGLOBIN 28.8 pg (26.0-32.0); MEAN CORPUSCULAR HGB CONC 34.7 g/dL (32.0-36.0); MEAN CORPUSCULAR VOLUME 83.1 fL (78.0-93.0); MONOCYTES ABSOLUTE AUTO 0.6 x10^3/uL (0.0-0.8); MONOCYTES PERCENT AUTO 10.2 % (2.0-11.0); NEUTROPHILS ABSOLUTE AUTO 3.6 x10^3/uL (1.8-7.7); PLATELET COUNT,PLT 201 x10^3/uL (130-400); RED BLOOD CELL COUNT 3.96 x10^6/uL (4.5-6.0); WHITE BLOOD CELL COUNT,WBC 5.4 x10^3/uL (4.0-10.0)
[2023-01-22 07:01] LABS: ALBUMIN 3.5 g/dL (3.4-5.0); CALCIUM 9.6 mg/dL (8.5-10.1); CREATININE 1.9 mg/dL (0.70-1.30); EST CRCL DRUG DOSING (CG) 50.13 mL/min; MAGNESIUM 2.5 mg/dL (1.8-2.4); PHOSPHORUS 2.4 mg/dL (2.6-4.7); POTASSIUM,K 3.7 mmol/L (3.5-5.1)
[2023-01-22] MEDS: levETIRAcetam 500 MG Tab PO SCH (08:08)
[2023-01-22] MEDS: Magnesium Oxide 400 MG Tab PO SCH (08:09)
[2023-01-22] MEDS: Potassium Chloride 20 MEQ Tab.ER PO SCH (08:10)
[2023-01-22] MEDS: lamoTRIgine 100 MG Tab PO SCH (08:10)
[2023-01-22] MEDS: Lacosamide 50 MG Tab PO SCH (08:13)
[2023-01-22] MEDS: Sennosides/Docusate Sodium 50-8.6 MG Tab PO SCH (08:14)
[2023-01-22] MEDS: CLOBAZAM 20 MG PO SCH (08:17)
[2023-01-22] MEDS: Enoxaparin 40 MG/0.4 ML Syringe SUBCUT SCH (08:19)
== END 2023-01-22 09:45 | disposition home or self-care (01) | DRG 641 ==
LOC: VM.MS 12:47
PROVIDERS: ADMIT Internal Medicine; ATTEND Internal Medicine
DX: E83.52 Hypercalcemia (principal); N17.9 Acute kidney failure, unspecified; G40.909 Epilepsy, unspecified, not intractable, without status epilepticus; E86.0 Dehydration; M81.0 Age-related osteoporosis without current pathological fracture; N18.9 Chronic kidney disease, unspecified; E87.6 Hypokalemia; E83.42 Hypomagnesemia; F81.9 Developmental disorder of scholastic skills, unspecified; Z88.8 Allergy status to other drugs, medicaments and biological substances; Z98.890 Other specified postprocedural states; Z87.81 Personal history of (healed) traumatic fracture
CPT/HCPCS: 36415; 51798; 71045; 80048; 80053; 80069; 81001; 82306; 83735; 83970; 85025; 87086; 95851-GO; 97116-GP; 97161-GP; 97165-GO; 97535-GO; A9270-GY; J1650; J2430; J3475; J3480; J7030; J7040

== ENCOUNTER 2023-04-15 20:00 | Emergency (ER) | payer MEDICAID | END 2023-04-15 20:29 | disposition home or self-care (01) | LOC: VM.ED 20:00 | DX: S01.112A Laceration without foreign body of left eyelid and periocular area, initial encounter (principal); Z88.1 Allergy status to other antibiotic agents; Z79.899 Other long term (current) drug therapy; W22.8XXA Striking against or struck by other objects, initial encounter | CPT/HCPCS: 12011; 99282; 99283 ==

== ENCOUNTER 2025-05-28 17:10 | Emergency (ER) | payer MEDICAID | END 2025-05-28 17:55 | disposition home or self-care (01) | LOC: VM.ED 17:10 | DX: S01.81XA Laceration without foreign body of other part of head, initial encounter (principal); R56.9 Unspecified convulsions; Z88.8 Allergy status to other drugs, medicaments and biological substances; Z79.899 Other long term (current) drug therapy; W18.39XA Other fall on same level, initial encounter; Y93.89 Activity, other specified | CPT/HCPCS: 12011; 12013; 99283 ==